=== PATIENT | female | born 2000 | race Caucasian/White ===

== ENCOUNTER → 2022-05-05 | Outpatient (CLI) | payer BC ==
[~2022-05-05] MED LIST: CLARITIN
[2022-05-05 11:55] LABS: Follicle Stimulating Hormone 10.57 IU/L (SEE BELOW); Leuteinizing Hormone 6.4 IU/L
== END | disposition home or self-care (01) ==
LOC: LAB 10:12
PROVIDERS: ATTEND Obstetrics & Gynecology
DX: R10.2 Pelvic and perineal pain (principal)
CPT/HCPCS: 36415; 82670; 83001; 83002; 84403; 84443